=== PATIENT | male | born 1955 | race Caucasian/White ===

== ENCOUNTER → 2018-07-08 15:30 | Outpatient (CLI) | payer MEDICARE ==
[2018-07-08 16:06] LABS: APPEARANCE CLEAR (CLEAR); BILIRUBIN NEGATIVE (NEGATIVE); COLOR YELLOW (YELLOW); GLUCOSE NEGATIVE (NEGATIVE); KETONE NEGATIVE (NEGATIVE); NITRITE NEGATIVE (NEGATIVE); PROTEIN NEGATIVE (NEGATIVE); SPECIFIC GRAVITY 1.015 (1.005-1.020); UROBILINOGEN NORMAL (NORMAL)
== END | disposition home or self-care (01) ==
LOC: D.LABREF 15:30
PROVIDERS: ATTEND Family Medicine
DX: R30.0 Dysuria (principal); R39.11 Hesitancy of micturition